=== PATIENT | male | born 1985 | race Caucasian/White ===

== ENCOUNTER 2020-02-06 12:11 | Emergency (ER) | payer MEDICAID ==
[~2020-02-06] VITALS: Ht 172.7 cm; Wt 90.7 kg
[2020-02-06 12:11] VITALS: BP_SYST 121
--- NOTE | 2020-02-06 12:20 | NUR ---
MD LUTHER AT BEDSIDE ASSESSING PT.
[2020-02-06] MEDS ORDERED: KETOROLAC TROMETHAMINE 60 MG/2 ML VIAL IM ONE (12:30)
[2020-02-06] MEDS ORDERED: DEXAMETHASONE SOD PHOSPHATE 10 MG/ML VIAL IM ONE (12:30)
--- NOTE | 2020-02-06 12:42 | NUR ---
PT HAS RECEIVED 2 IM INJECTION.S. PT IS NOW BEING TAKEN TO CT.
--- NOTE | 2020-02-06 13:30 | NUR ---
Patient given written and verbal discharge instructions and verbalizes understanding. ER MD discussed with patient the results and treatment provided. Patient in stable condition. ID arm band removed. Rx of FLEXERIL, NAPROXYN given. Patient educated on pain management and to follow up with PMD. Pain Scale 1/10. Opportunity for questions provided and answered. Medication side effect fact sheet provided.
[2020-02-06 13:35] VITALS: BP_SYST 119
== END 2020-02-06 13:55 | disposition home or self-care (01) ==
LOC: SED 12:11
DX: M51.26 Other intervertebral disc displacement, lumbar region (principal)
CPT/HCPCS: 72131; 96372; 99284; J1100; J1885